=== PATIENT | female | born 1995 | race Caucasian/White ===

== ENCOUNTER 2021-02-06 18:15 | Emergency (ER) | payer MEDICAID ==
[2021-02-06] MEDS ORDERED: Bacitracin Oint 1 GM U/D Packet TOP ONE (18:42)
[2021-02-06] MEDS ORDERED: Diphtheria,Pertussis(Acell),Tetanus Vaccine 0.5 ML Syringe IM ONE (18:42)
[2021-02-06] MEDS ORDERED: Lidocaine 1% with EPINEPHrine 1:100,000 50 ML MDV SUBCUT ONE (18:43)
--- NOTE | 2021-02-06 19:29 | EDM.PDOC ---
ED HPI GENERAL MEDICAL PROBLEM - General Chief Complaint: Laceration Stated Complaint: MEDICAL VIA [facility] Time Seen by Provider: 02/06/21 18:35 Source of Information: Reports: Patient, RN History Limitations: Reports: No Limitations - History of Present Illness INITIAL COMMENTS - FREE TEXT/NARRATIVE: [place] here in the park during the public demonstration. Patient fell on a si de of a hill which left a gash in her lower left knee just below the kneecap just prior to arrival. She arrived per ambulance. Patient was unsure of her tetanus status. She phoned her mother to find out she is probably due for one. Patient has not had anything for pain. Onset: Today, Sudden Duration: Hour(s): Location: Reports: Lower Extremity, Left Quality: Reports: Throbbing Improves with: Reports: None Worsens with: Reports: None Context: Reports: Trauma Associated Symptoms: Reports: No Other Symptoms Left Lower Leg Pain Score (Numeric/FACES): 5 - Related Data Allergies Allergy/AdvReac Type Severity Reaction Status Date / Time No Known Allergies Allergy Verified 02/06/21 18:26 Home Meds: Home Meds NK [No Known Home Meds] 02/06/21 [History] Past Medical History HEENT History: Reports: Impaired Vision Musculoskeletal History: Reports: Fracture Other Musculoskeletal History: Fx ankle - Past Surgical History GI Surgical History: Reports: Appendectomy Social & Family History - Tobacco Use Tobacco Use Status *Q: Never Tobacco User Second Hand Smoke Exposure: No - Caffeine Use Caffeine Use: Reports: Coffee, Tea - Recreational Drug Use Recreational Drug Use: No ED ROS GENERAL - Review of Systems Review Of Systems: See Below Constitutional: Reports: No Symptoms Respiratory: Reports: No Symptoms Cardiovascular: Reports: No Symptoms Musculoskeletal: Reports: Joint Pain (Left knee), Joint Swelling (Left knee) Skin: Reports: Lesions Neurological: Reports: No Symptoms Psychiatric: Reports: No Symptoms Hematologic/Lymphatic: Reports: No Symptoms Immunologic: Reports: No Symptoms ED EXAM, SKIN/RASH Exam: See Below Exam Limited By: No Limitations General Appearance: Alert, WD/WN, Mild Distress Respiratory/Chest: No Respiratory Distress, Lungs Clear Cardiovascular: Normal Peripheral Pulses, Regular Rate, Rhythm Extremities: Normal Range of Motion, No Pedal Edema, Normal Capillary Refill, Pedal Edema, Joint Swelling Neurological: Alert, Oriented, CN II-XII Intact, Normal Cognition Psychiatric: Normal Affect, Normal Mood Skin: Warm, Dry, Wound/Incision (A centimeter incision across kneecap to the base of right knee below the kneecap) Location, Skin: Lower Extremity, Left (8 cm laceration) Associated features: Warmth, Tenderness, Swelling Lymphatic: No Adenopathy ED SKIN PROCEDURES - Laceration/Wound Repair Left Lower Knee Appearance: Superficial, Mildly Contaminated Distal NVT: Neuro & Vascular Intact, No Tendon Injury Anesthetic Type: Local Local Anesthesia - Lidocaine (Xylocaine): 2% with EPI Local Anesthetic Volume: Other (7 cc) Skin Prep: Chlorhexidine (Hibiciens) Saline Irrigation (cc's): 100 Exploration/Debridement/Repair: Wound Explored, In a Bloodless Field, Minimal Debridement, No Foreign Material Found Closed with: Sutures Lac/Wound length In cm: 8 Suture Size: 4-0 # of Sutures: 7 Suture Type: Nylon, Simple Tetanus Status Addressed: Yes Complications: No Progress/Comments: Patient with 8 cm laceration to left lower kneecap. Patient consented to closure. Lidocaine with 1% epinephrine was applied to the wound edges and into the wound to promote numbness. Patient tolerated without difficulty. 7 simple sutures were placed. Patient was instructed in wound care including keeping covered for the next 24 to 48 hours. Do not saturate or soak the area. Patient should return to her primary care provider in 7 to 10 days when she has home for suture removal. Tetanus addressed and she received a Tdap with her permission. Course - Vital Signs Last Recorded V/S: Last Vital Signs Temp 36.7 C 02/06/21 18:26 Pulse 63 02/06/21 18:26 Resp 16 02/06/21 18:26 BP 112/69 02/06/21 18:26 Pulse Ox 99 02/06/21 18:26 - Orders/Labs/Meds Meds: Medications Discontinued Medications Generic Name Dose Route Start Last Admin Trade Name Freq PRN Reason Stop Dose Admin Bacitracin 1 dose 02/06/21 18:42 02/06/21 19:00 Bacitracin Oint 1 Gm U/D Packet TOP 02/06/21 18:43 1 dose ONETIME ONE Administration Diphtheria/Tetanus/Acell Pertussis 0.5 ml 02/06/21 18:42 02/06/21 19:00 Diphtheria,Pertussis(Acell),Tetanus Vaccine 0.5 Ml Syringe IM 02/06/21 18:43 0.5 ml .ONCE ONE Administration Lidocaine/Epinephrine 10 ml 02/06/21 18:43 02/06/21 19:00 Lidocaine 1% With Epinephrine 1:100,000 50 Ml Mdv SUBCUT 02/06/21 18:44 10 ml ONETIME ONE Administration Departure - Departure Time of Disposition: 19:42 Disposition: Home, Self-Care 01 Condition: Good Clinical Impression: Laceration - Discharge Information *PRESCRIPTION DRUG MONITORING PROGRAM REVIEWED*: Not Applicable *COPY OF PRESCRIPTION DRUG MONITORING REPORT IN PATIENT [place]EN[place]: Not Applicable Instructions: Laceration Care, Adult, Wound Care, Adult Referrals: PCP,None [Primary Care Provider] - Forms: ED Department Discharge Additional Instructions: Follow-up with primary care provider in 7 to 10 days for suture removal. Keep w ound clean and dry. Report any signs or symptoms of infection as discussed in the ER. Sepsis Event Note (ED) - Evaluation Sepsis Screening Result: No Definite Risk - Focused Exam Vital Signs: Vital Signs Temp Pulse Resp BP Pulse Ox 02/06/21 18:26 36.7 C 63 16 112/69 99 02/06/21 18:24 36.7 C 63 16 112/69 99
== END 2021-02-06 19:47 | disposition home or self-care (01) ==
LOC: JP.ED 18:15
DX: S81.012A Laceration without foreign body, left knee, initial encounter (principal); Z23 Encounter for immunization; W17.81XA Fall down embankment (hill), initial encounter; W26.8XXA Contact with other sharp object(s), not elsewhere classified, initial encounter
CPT/HCPCS: 12004; 90471; 90715; 99283-25